=== PATIENT | female | born 1950 | race Two or more races ===

== ENCOUNTER 2016-06-05 17:29 | Emergency (ER) | payer MEDICAID ==
[~2016-06-05] VITALS: Ht 165.1 cm; Wt 90.0 kg
[2016-06-05] MEDS ORDERED: SODIUM CHLORIDE 0.9% 1,000 ML IV ONE (17:53)
[2016-06-05] MEDS ORDERED: MORPHINE SULFATE 4 MG/ML CPJ (NOT FOR IM USE) IV STA (17:53)
[2016-06-05] MEDS ORDERED: ONDANSETRON HCL 4MG/2ML VIAL IV STA (17:53)
[2016-06-05] MEDS ORDERED: FAMOTIDINE 20MG/2ML VIAL IV ONE (18:00)
[2016-06-05 18:12] LABS: CLARITY URINE CLEAR (CLEAR); COLOR URINE YELLOW (YELLOW); GLUCOSE URINE NEGATIVE (NEGATIVE); KETONES URINE NEGATIVE (NEGATIVE); LEUKOCYTE ESTERASE URINE TRACE (NEGATIVE); NITRITE URINE NEGATIVE (NEGATIVE); OCCULT BLOOD URINE 2+ (NEGATIVE); PH URINE 5.5 (4.5-8.0); PROTEIN URINE 1+ (NEGATIVE); UROBILINOGEN URINE 0.2 E.U./dL (0.2-1.0)
[2016-06-05 18:14] LABS: BASOPHILS % 0.4 % (0.0-2.0); HEMATOCRIT. 40.5 % (36.0-48.0); HEMOGLOBIN. 13.4 g/dL (12.0-16.0); LYMPHOCYTES % 34.5 % (20.0-50.0); MEAN CORPUSCULAR HEMOGLOBIN 26.9 pg (28.0-32.0); MEAN CORPUSCULAR HGB CONC 33.2 g/dL (31.0-37.0); MEAN CORPUSCULAR VOLUME 80.9 fL (81.0-99.0); MEAN PLATELET VOLUME 9.3 fl (7.4-10.4); MONOCYTES % 6.8 % (2.0-8.0); NEUTROPHILS % 58.3 % (40.0-76.0); PLATELET 238 x1000/uL (130-400); RED CELL DISTRIBUTION WIDTH 14.2 % (11.6-14.6); WHITE BLOOD COUNT 7.1 x1000/uL (4.5-11.0)
[2016-06-05 18:20] LABS: ALBUMIN 3.9 g/dL (3.4-5.0); ANION GAP 14; CALCIUM 9.5 mg/dL (8.5-10.1); CARBON DIOXIDE 24 mEq/L (21-32); CHLORIDE 107 mEq/L (98-107); INDEX HEMOLYSI 1 (1-3); INDEX ICTERIC 1 (1-4); INDEX LIPEMIC 1 (1-3); LIPASE 322 IU/L (73-393); UREA NITROGEN BLOOD 12 mg/dL (7-21)
[2016-06-05 18:26] LABS: ALANINE AMINOTRANSFERASE 116 IU/L (13-61); eGFR > 60 mL/min (>60)
[2016-06-05 19:06] LABS: SQUAMOUS EPITHELIAL CELL URINE FEW /lpf (RARE/1+)
[2016-06-05 19:11] LABS: BACTERIA URINE TRACE
[2016-06-05 20:20] VITALS: BP 124/66
== END 2016-06-05 20:20 | disposition home or self-care (01) ==
LOC: ER 17:30
DX: K76.0 Fatty (change of) liver, not elsewhere classified (principal); N39.0 Urinary tract infection, site not specified; R79.89 Other specified abnormal findings of blood chemistry; E11.9 Type 2 diabetes mellitus without complications; I11.9 Hypertensive heart disease without heart failure
CPT/HCPCS: 36415; 76700; 80053; 81001; 83690; 85025; 93005; 96361; 96374; 96375; 99285; J2270; J2405; J3490; J7030; Z7610